=== PATIENT | male | born 1960 | race Hispanic/Latino ===

== ENCOUNTER 2019-09-03 10:32 | Outpatient (CLI) | payer MEDICARE ==
--- NOTE | 2019-09-03 11:41 | XRay Report ---
RIGHT TOES 4 VIEWS RIGHT FOOT 3 VIEWS RIGHT ANKLE 3 VIEWS INDICATION / CLINICAL INFORMATION: Right lateral foot swelling and tenderness. Pain and tenderness throughout all toes. COMPARISON: None available. FINDINGS: BONES and JOINT(S): No acute fracture or subluxation. No significant arthritis. SOFT TISSUES: No significant abnormality. ADDITIONAL FINDINGS: None. IMPRESSION: No acute abnormality of the right toes, foot or ankle. Signer Name: Varun Jimenes MD Signed: 09/03/2019 11:37 AM Workstation Name: [id number]
== END 2019-09-03 10:33 | disposition home or self-care (01) ==
LOC: XRAY 10:32
DX: M25.474 Effusion, right foot (principal); M25.571 Pain in right ankle and joints of right foot